=== PATIENT | male | born 1965 | race Caucasian/White ===

== ENCOUNTER 2019-08-29 10:12 | Emergency (ER) | payer MEDICAID ==
[~2019-08-29] VITALS: Ht 177.8 cm; Wt 76.4 kg
[2019-08-29 10:18] VITALS: BP 153/83
--- NOTE | 2019-08-29 10:21 | NUR ---
Patient ambulated to bed 5.
--- NOTE | 2019-08-29 10:25 | NUR ---
CHEST DISCOMFORT X MONTHS, PROGRESSIVELY WORSE. LEFT UPPER CHEST RADIATING TO STERNUM AREA, 7/10 TIGHTNESS. + DIZZINESS.PT AOX4 , AFIBRILE , AMBULATORY WITH STEADY GAIT , SCE, CBS BLF, AP TACHYCARDIC SINU RYTHM ON MONITOR. NO HX FAMILY HX OF [place]
--- NOTE | 2019-08-29 10:28 | NUR ---
Patient being evaluated by Dr. Cano at bedside.
--- NOTE | 2019-08-29 10:35 | NUR ---
EMT ADAKU AT BEDSIDE DOIN EKG
[2019-08-29 10:51] VITALS: BP 142/71
--- NOTE | 2019-08-29 10:51 | NUR ---
Patient discharged with v/s stable. Written and verbal after care instructions given and explained regading chest pain nonspecific. Patient alert, oriented and verbalized understanding of instructions. Ambulatory with steady gait. All questions addressed prior to discharge. ID band removed. Patient advised to follow up with PMD. Rx of motrin and norco given. Patient educated on indication of medication including possible reaction and side effects. Opportunity to ask questions provided and answered.
== END 2019-08-29 10:51 | disposition home or self-care (01) ==
LOC: MED 10:12
DX: R07.9 Chest pain, unspecified (principal); K08.89 Other specified disorders of teeth and supporting structures
CPT/HCPCS: 93005; 99283